=== PATIENT | male | born 1945 | race Caucasian/White ===

== ENCOUNTER 2017-02-17 12:30 | Emergency (ER) | payer MEDICARE, MEDICAID ==
[2017-02-17 14:50] LABS: Hematocrit 42 % (42-52); Mean Corpuscular HGB Conc 33 g/dl (31-36); Mean Corpuscular Hemoglobin 32 pg (27-31); Mean Corpuscular Volume 95 fL (80-94); Mean Platelet Volume 8 um3 (7.4-10.4); Red Blood Count 4.43 10^6/ul (4.0-5.4); Red Cell Distribution Width 14 % (10.5-15); White Blood Count 9.3 10^3/ul (3.5-10.8)
[2017-02-17 15:21] LABS: Albumin 3.5 g/dL (3.2-5.2); BUN/Creatinine Ratio 16.5 (8-20); C Reactive Protein 79.58 mg/L (< 5.00); EGFR African American 98.4 (>60); EGFR Non-African American 76.5 (>60); Globulin 2.8 g/dL (2-4); Total Bilirubin 0.4 mg/dL (0.2-1.0); Total Protein 6.3 g/dL (6.4-8.9)
[2017-02-17 15:42] LABS: Urine Bacteria Absent (Absent); Urine Bilirubin Negative (Negative); Urine Glucose Negative (Negative); Urine Nitrite Negative (Negative)
--- NOTE | 2017-02-17 15:52 | RAD ---
Indication: Left testicular pain. Real-time sonography of the scrotum was performed. The right testis measures 4.3 x 2.4 x 2.7 cm. No intratesticular masses are noted. Normal flow is noted in the right testis. The epididymis measures 11 x 14 mm. The left testis measures 3.6 x 2.2 x 2.9 cm. Normal flow is noted in the left testis. The left testis appears to BE hypervascular with calcifications. The epididymis appears to be enlarged measuring 12 x 18 mm. Epididymal head cyst measures 3 x 2 x 3 mm and 2 x 2 x 3 mm. Hypervascularity is noted. There is loculated left scrotal hydrocele. IMPRESSION: Findings consistent with left-sided epididymal orchitis. Loculated hydrocele is noted. Increased vascularity is noted in the left testis and left epididymis.
[2017-02-17] MEDS ORDERED: cefTRIAXone VIAL(*) 250 MG VIAL IM ONE (16:04)
[2017-02-17] MEDS ORDERED: DOXYcycline CAP(*) 100 MG PO ONE (16:04)
[2017-02-17] MEDS ORDERED: HYDROcodone/ACETAMIN 5-325 MG* 1 TAB PO ONE (16:13)
[2017-02-17 16:44] VITALS: BP 138/65
--- NOTE | 2017-02-17 18:45 | ED ---
Isma Serrano Angela, scribed for Rico Rangel MD on 02/17/17 at 1428 . GI/ HPI - HPI Summary HPI Summary: This pt is a 71 y/o male presenting to [facility] c/o swollen left testicle x6 days. Pt reports he also has pain. He states that he was first diagnosed with prostatitis by Dr. Hoffman's office and only had discomfort then. Pt notes worsening left testicle since then with pain now. He denies fever, chills, penile discharge. Pt is currently sexually active with different partners and states he does not use protection all the time. Pt was sent by his PCP for a sonogram of his testicle. PMHx includes hernia repair approximately 30 years ago. - History of Current Complaint Chief Complaint: EDGeneral Time Seen by Provider: 02/17/17 14:18 Stated Complaint: ENLARGED TESTICLE / SENT BY DR Somers Obtained From: Patient Onset/Duration: Started Days Ago, Still Present Timing: Lasting Days Pain Intensity: 8 Additional Locations for Males: Testicles - left Associated Signs and Symptoms: Negative: Fever, Chills Additional Signs & Symptoms: Negative: Penile Discharge - Allergy/Home Medications Allergies/Adverse Reactions: Allergies Allergy/AdvReac Type Severity Reaction Status Date / Time Abacavir [From Ziagen] Allergy Severe Fever Verified 02/17/17 13:48 PMH/Surg Hx/FS Hx/Imm Hx Endocrine/Hematology History: Denies: Hx Diabetes, Hx Thyroid Disease, Hx Anemia Cardiovascular History: Reports: Hx Angina, Hx Hypercholesterolemia, Hx Myocardial Infarction Denies: Hx Hypertension Respiratory History: Denies: Hx Asthma, Hx Chronic Obstructive Pulmonary Disease (COPD) GI History: Denies: Hx Jaundice, Hx Ulcer Musculoskeletal History: Denies: Hx Rheumatoid Arthritis, Hx Osteoporosis Sensory History: Reports: Hx Contacts or Glasses Opthamlomology History: Reports: Hx Contacts or Glasses - Surgical History Surgery Procedure, Year, and Place: cardiac stent placed 2000 Infectious Disease History: No Infectious Disease History: Reports: Hx Human Immunodeficiency Virus (HIV) Denies: Hx Hepatitis, Traveled Outside the [place] in Last 30 Days - Family History Known Family History: Positive: Diabetes - maternal grandmother, Other - Mother : hypothryroidism - Social History Alcohol Use: None Substance Use Type: Reports: Marijuana Substance Use Comment - Amount & Last Used: not recently, not in about a month Smoking Status (MU): Light Every Day Tobacco Smoker Type: Cigarettes Have You Smoked in the Last Year: Yes Review of Systems Negative: Fever, Chills Positive: pain, other - left testicle swelling. Negative: discharge All Other Systems Reviewed And Are Negative: Yes Physical Exam - Summary Physical Exam Summary: VITAL SIGNS: Reviewed. GENERAL: Patient is a well-developed and nourished male who is lying comfortable in the stretcher. Patient is not in any acute respiratory distress. HEAD AND FACE: No signs of trauma. No ecchymosis, hematomas or skull depressions. No sinus tenderness. EYES: PERRLA, EOMI x 2, No injected conjunctiva, no nystagmus. EARS: Hearing grossly intact. Ear canals and tympanic membranes are within normal limits. MOUTH: Oropharynx within normal limits. NECK: Supple, trachea is midline, no adenopathy, no JVD, no carotid bruit, no c- spine tenderness, neck with full ROM. CHEST: Symmetric, no tenderness at palpation LUNGS: Clear to auscultation bilaterally. No wheezing or crackles. CVS: Regular rate and rhythm, S1 and S2 present, no murmurs or gallops appreciated. ABDOMEN: Soft, non-tender. No signs of distention. No rebound no guarding, and no masses palpated. Bowel sounds are normal. : Uncircumcised penis without any discharged, both testicles are descended. Pt has a swollen left testicle. There is tenderness to palpation on right testicle. Good cremasteric reflex. EXTREMITIES: FROM in all major joints, no edema, no cyanosis or clubbing. NEURO: Alert and oriented x 3. No acute neurological deficits. Speech is normal and follows commands. SKIN: Dry and warm Triage Information Reviewed: Yes Vital Signs On Initial Exam: Initial Vitals Temp Pulse Resp BP Pulse Ox 97.6 F 74 20 140/92 95 02/17/17 12:32 02/17/17 12:32 02/17/17 12:32 02/17/17 12:32 02/17/17 12:32 Vital Signs Reviewed: Yes - [place] Coma Scale Coma Scale Total: 15 Diagnostics - Vital Signs Vital Signs Temp Pulse Resp BP Pulse Ox 02/17/17 13:51 74 96 02/17/17 13:50 129/92 02/17/17 12:32 97.6 F 74 20 140/92 95 - Laboratory Lab Results: Lab Results 02/17/17 02/17/17 02/17/17 Range/Units 14:36 14:36 14:36 WBC 9.3 (3.5-10.8) 10^3/ul RBC 4.43 (4.0-5.4) 10^6/ul Hgb 14.0 (14.0-18.0) g/dl Hct 42 (42-52) % MCV 95 H (80-94) fL MCH 32 H (27-31) pg MCHC 33 (31-36) g/dl RDW 14 (10.5-15) % Plt Count 204 (150-450) 10^3/ul MPV 8 (7.4-10.4) um3 Neut % (Auto) 63.2 (38-83) % Lymph % (Auto) 23.2 L (25-47) % [place] % (Auto) 11.2 H (1-9) % Eos % (Auto) 1.7 (0-6) % Baso % (Auto) 0.7 (0-2) % Absolute Neuts (auto) 5.9 (1.5-7.7) 10^3/ul Absolute Lymphs (auto) 2.2 (1.0-4.8) 10^3/ul Absolute Monos (auto) 1.0 H (0-0.8) 10^3/ul Absolute Eos (auto) 0.2 (0-0.6) 10^3/ul Absolute Basos (auto) 0.1 (0-0.2) 10^3/ul Absolute Nucleated RBC 0 10^3/ul Nucleated RBC % 0 Sodium 134 (133-145) mmol/L Potassium 4.0 (3.5-5.0) mmol/L Chloride 101 (101-111) mmol/L Carbon Dioxide 30 (22-32) mmol/L Anion Gap 3 (2-11) mmol/L BUN 16 (6-24) mg/dL Creatinine 0.97 (0.67-1.17) mg/dL Est GFR ( Amer) 98.4 (>60) Est GFR (Non-Af Amer) 76.5 (>60) BUN/Creatinine Ratio 16.5 (8-20) Glucose 84 (70-100) mg/dL Lactic Acid 0.9 (0.5-2.0) mmol/L Calcium 9.0 (8.6-10.3) mg/dL Total Bilirubin 0.40 (0.2-1.0) mg/dL AST 12 L (13-39) U/L ALT 5 L (7-52) U/L Alkaline Phosphatase 57 (34-104) U/L C-Reactive Protein 79.58 H (< 5.00) mg/L Total Protein 6.3 L (6.4-8.9) g/dL Albumin 3.5 (3.2-5.2) g/dL Globulin 2.8 (2-4) g/dL Albumin/Globulin Ratio 1.3 (1-3) Urine Color Urine Appearance Urine pH (5-9) Ur Specific [place] (1.010-1.030) Urine Protein (Negative) Urine Ketones (Negative) Urine Blood (Negative) Urine Nitrate (Negative) Urine Bilirubin (Negative) Urine Urobilinogen (Negative) Ur Leukocyte Esterase (Negative) Urine WBC (Auto) (Absent) Urine RBC (Auto) (Absent) Urine Bacteria (Absent) Urine Glucose (Negative) 02/17/17 Range/Units 15:24 WBC (3.5-10.8) 10^3/ul RBC (4.0-5.4) 10^6/ul Hgb (14.0-18.0) g/dl Hct (42-52) % MCV (80-94) fL MCH (27-31) pg MCHC (31-36) g/dl RDW (10.5-15) % Plt Count (150-450) 10^3/ul MPV (7.4-10.4) um3 Neut % (Auto) (38-83) % Lymph % (Auto) (25-47) % [place] % (Auto) (1-9) % Eos % (Auto) (0-6) % Baso % (Auto) (0-2) % Absolute Neuts (auto) (1.5-7.7) 10^3/ul Absolute Lymphs (auto) (1.0-4.8) 10^3/ul Absolute Monos (auto) (0-0.8) 10^3/ul Absolute Eos (auto) (0-0.6) 10^3/ul Absolute Basos (auto) (0-0.2) 10^3/ul Absolute Nucleated RBC 10^3/ul Nucleated RBC % Sodium (133-145) mmol/L Potassium (3.5-5.0) mmol/L Chloride (101-111) mmol/L Carbon Dioxide (22-32) mmol/L Anion Gap (2-11) mmol/L BUN (6-24) mg/dL Creatinine (0.67-1.17) mg/dL Est GFR ( Amer) (>60) Est GFR (Non-Af Amer) (>60) BUN/Creatinine Ratio (8-20) Glucose (70-100) mg/dL Lactic Acid (0.5-2.0) mmol/L Calcium (8.6-10.3) mg/dL Total Bilirubin (0.2-1.0) mg/dL AST (13-39) U/L ALT (7-52) U/L Alkaline Phosphatase (34-104) U/L C-Reactive Protein (< 5.00) mg/L Total Protein (6.4-8.9) g/dL Albumin (3.2-5.2) g/dL Globulin (2-4) g/dL Albumin/Globulin Ratio (1-3) Urine Color Yellow Urine Appearance Clear Urine pH 6.0 (5-9) Ur Specific [place] 1.013 (1.010-1.030) Urine Protein Negative (Negative) Urine Ketones Negative (Negative) Urine Blood 1+ H (Negative) Urine Nitrate Negative (Negative) Urine Bilirubin Negative (Negative) Urine Urobilinogen Negative (Negative) Ur Leukocyte Esterase Trace H (Negative) Urine WBC (Auto) Trace(0-5/hpf) (Absent) Urine RBC (Auto) 1+(3-5/hpf) H (Absent) Urine Bacteria Absent (Absent) Urine Glucose Negative (Negative) Result Diagrams: 02/17/17 14:36 02/17/17 14:36 Lab Statement: Any lab studies that have been ordered have been reviewed, and results considered in the medical decision making process. - Ultrasound No standard instances Ultrasound Interpretation: Positive (See Comments) - US Testicular IMPRESSION: Findings consistent with left-sided epididymal orchitis. Loculated hydrocele is noted. Increased vascularity is noted in the left testis and left epididymis. ED physician has reviewed this radiology report and agrees. Ultrasound Interpretation Completed By: Radiologist Re-Evaluation - Re-Evaluation First Eval Re-Evaluation Time: 16:29 Comment: I discussed the US results with the pt. GIGU Course/Dx - Course Assessment/Plan: This pt is a 71 y/o male presenting to [facility] c/o swollen left testicle x6 days. Pt reports he also has pain. He states that he was first diagnosed with prostatitis by Dr. Hoffman's office and only had discomfort then. Pt notes worsening left testicle since then with pain now. He denies fever, chills , penile discharge. Pt is currently sexually active with different partners and states he does not use protection all the time. Pt was sent by his PCP for a sonogram of his testicle. PMHx includes hernia repair approximately 30 years ago. Test results without any significant abnormality, CRP of 79.58. UA is negative for UTI. I did send a GC and chlamydia test. Testicular US shows findings consistent with left-sided epididymal orchitis. Loculated hydrocele is noted. Increased vascularity is noted in the left testis and left epididymis. Since the pt is sexually active with multiple partners without any protection and US shows epididymal orchitis, I will treat the pt for a possible STD. The pt will be given Rocephin and doxycycline. At this point I discussed my findings and results with the pt, and the need to follow up with urology. The pt understands and agrees. Pt is hemodynamically stable, alert and oriented x3. - Diagnoses Differential Diagnoses - Male: STD, Other - Testiclular torsion, testicular mass , epidydymitis Provider Diagnoses: Epididymo-orchitis Discharge - Discharge Plan Condition: Stable Disposition: HOME Prescriptions: DOXYcycline CAP(*) [DOXYcycline 100MG CAP(*)] 100 mg PO BID #20 cap Patient Education Materials: Epididymo-Orchitis (ED) Referrals: Adonis Hoffman MD [Primary Care Provider] - Additional Instructions: Please follow up with your primary care provider. RETURN TO THE ED FOR ANY WORSENING SYMPTOMS. The documentation as recorded by the Isma mirza Angela accurately reflects the service I personally performed and the decisions made by me, Rico Rangel MD.
== END 2017-02-17 16:46 | disposition home or self-care (01) ==
LOC: ED 12:30
DX: N50.89 Other specified disorders of the male genital organs (principal); F17.210 Nicotine dependence, cigarettes, uncomplicated
CPT/HCPCS: 36415; 76870; 80053; 81003; 81015; 83605; 85025; 86140; 87086; 87491; 87591; 96372; 99283; A9270-GY; J0696

== ENCOUNTER 2018-12-02 17:56 | Emergency (ER) | payer MEDICARE ==
[2018-12-02 18:49] LABS: ABS Eosinophils 0.1 10^3/ul (0-0.6); ABS Lymphocytes 1.8 10^3/ul (1.0-4.8); ABS Monocytes 0.6 10^3/ul (0-0.8); ABS Neutrophils 5.9 10^3/ul (1.5-7.7); Eosinophil % 0.8 %; Hematocrit 43 % (42-52); Hemoglobin 14.5 g/dL (14.0-18.0); Lymphocyte % 21.1 %; Mean Corpuscular HGB Conc 34 g/dL (31-36); Mean Corpuscular Hemoglobin 33 pg (27-31); Mean Corpuscular Volume 96 fL (80-94); Mean Platelet Volume 7.9 fL (7.4-10.4); Platelet Count 197 10^3/uL (150-450); Red Blood Count 4.43 10^6 /uL (4.18-5.48); Red Cell Distribution Width 14 % (10-15); White Blood Count 8.3 10^3/uL (3.5-10.8)
--- NOTE | 2018-12-02 18:54 | ED ---
Dizziness - HPI Summary HPI Summary: Patient presents with episode of lightheadedness and subsequent fall onto tailbone with episodes of vomiting and repeat bowel movements and dizziness after fall. Denies prior history of same. Patient states he returned to baseline, has some soreness to right gluteus. Symptoms lasted for approximately one hour. Patient is ambulatory. Patient denies prior history of similar symptoms. Denies fever, cough, sore throat, CP, SOB, N/V/D, abdominal pain, change in urine, LOC, CASTILLO, vision change, unilateral weakness or focal deficits. Medical history is [place] in 2000 with stents, HIV positive, HTN. No anti-coag. States recent stress test and echocardiogram last December 2017. [facility] Dr. Cannon. - History Of Current Complaint Chief Complaint: EDSyncope Stated Complaint: N/V, DIZZINESS PER EMS Hx Obtained From: Patient Onset/Duration: Resolved Timing: Minutes Severity Initially: Moderate Severity Currently: None Character: Room Spinning, Lightheaded, Dizzy Aggravating Factor(s): Nothing Alleviating Factor(s): Nothing Associated Signs And Symptoms: Positive: Nausea, Vomiting - Allergies/Home Medications Allergies/Adverse Reactions: Allergies Allergy/AdvReac Type Severity Reaction Status Date / Time MS Abacavir [From Ziagen] Allergy Severe Fever Verified 12/02/18 07:53 Home Medications: Home Medications Atorvastatin* [Lipitor*] 20 mg PO DAILY 12/02/18 [History Confirmed 12/02/18] Darunavir/Cobicistat [Prezcobix 800-150 mg] 1 tab PO DAILY 12/02/18 [History Confirmed 12/02/18] Dolutegravir (NF) [Tivicay (NF)] 50 mg PO DAILY 12/02/18 [History Confirmed ] FLUoxetine CAP* [PROzac CAP*] 40 mg PO DAILY 12/02/18 [History Confirmed ] Metoprolol Succinate XL TAB* [Toprol XL TAB*] 100 mg PO DAILY 12/02/18 [History Confirmed 12/02/18] PMH/Surg Hx/FS Hx/Imm Hx Endocrine/Hematology History: Denies: Hx Diabetes, Hx Thyroid Disease, Hx Anemia Cardiovascular History: Reports: Hx Angina, Hx Hypercholesterolemia, Hx Myocardial Infarction Denies: Hx Hypertension Respiratory History: Denies: Hx Asthma, Hx Chronic Obstructive Pulmonary Disease (COPD) GI History: Denies: Hx Jaundice, Hx Ulcer History: Denies: Hx Dialysis Musculoskeletal History: Denies: Hx Rheumatoid Arthritis, Hx Osteoporosis Sensory History: Reports: Hx Contacts or Glasses Opthamlomology History: Reports: Hx Contacts or Glasses EENT History: Denies: Hx Deafness Neurological History: Denies: Hx Developmental Delay - Surgical History Surgery Procedure, Year, and Place: cardiac stent placed 2000 Infectious Disease History: Yes Infectious Disease History: Reports: Hx Human Immunodeficiency Virus (HIV) Denies: Hx Hepatitis, Traveled Outside the [place] in Last 30 Days - Family History Known Family History: Positive: Diabetes - maternal grandmother, Other - Mother : hypothryroidism - Social History Alcohol Use: Weekly Substance Use Type: Reports: Marijuana Substance Use Comment - Amount & Last Used: not recently, not in about a month Smoking Status (MU): Light Every Day Tobacco Smoker Type: Cigarettes Have You Smoked in the Last Year: Yes Review of Systems Constitutional: Negative Eyes: Negative ENT: Negative Cardiovascular: Negative Respiratory: Negative Positive: Vomiting, Nausea Genitourinary: Negative Musculoskeletal: Negative Skin: Negative Neurological: Negative Psychological: Normal All Other Systems Reviewed And Are Negative: Yes Physical Exam - Summary Physical Exam Summary: Neuro exam normal. No evidence of trauma noted during physical exam. Patient alert and oriented. Triage Information Reviewed: Yes Vital Signs On Initial Exam: Initial Vitals Temp Pulse Resp BP Pulse Ox 98.8 F 60 16 125/75 97 12/02/18 18:06 12/02/18 18:06 12/02/18 18:06 12/02/18 18:06 12/02/18 18:06 Vital Signs Reviewed: Yes Appearance: Positive: Well-Appearing Skin: Positive: Warm Head/Face: Positive: Normal Head/Face Inspection Eyes: Positive: Normal ENT: Positive: Normal ENT inspection Dental: Negative: Dental Fracture @, Bleeding Neck: Positive: Supple Respiratory/Lung Sounds: Positive: Clear to Auscultation Cardiovascular: Positive: Normal, Murmur Abdomen Description: Positive: Nontender Musculoskeletal: Positive: Normal Neurological: Positive: Normal Psychiatric: Positive: Normal AVPU Assessment: Alert - Dat Coma Scale Best Eye Response: 4 - Spontaneous Best Motor Response: 6 - Obeys Commands Best Verbal Response: 5 - Oriented Coma Scale Total: 15 Diagnostics - Vital Signs Vital Signs Temp Pulse Resp BP Pulse Ox 12/02/18 18:38 61 15 133/86 95 12/02/18 18:36 60 19 136/86 96 12/02/18 18:23 60 18 96 12/02/18 18:07 58 19 125/75 97 12/02/18 18:06 98.8 F 60 16 125/75 97 - Laboratory Lab Results: Lab Results 12/02/18 Range/Units 18:39 WBC 8.3 (3.5-10.8) 10^3/uL RBC 4.43 (4.18-5.48) 10^6 /uL Hgb 14.5 (14.0-18.0) g/dL Hct 43 (42-52) % MCV 96 H (80-94) fL MCH 33 H (27-31) pg MCHC 34 (31-36) g/dL RDW 14 (10-15) % Plt Count 197 (150-450) 10^3/uL MPV 7.9 (7.4-10.4) fL Neut % (Auto) 70.9 % Lymph % (Auto) 21.1 % [place] % (Auto) 6.8 % Eos % (Auto) 0.8 % Baso % (Auto) 0.4 % Absolute Neuts (auto) 5.9 (1.5-7.7) 10^3/ul Absolute Lymphs (auto) 1.8 (1.0-4.8) 10^3/ul Absolute Monos (auto) 0.6 (0-0.8) 10^3/ul Absolute Eos (auto) 0.1 (0-0.6) 10^3/ul Absolute Basos (auto) 0.0 (0-0.2) 10^3/ul Absolute Nucleated RBC 0.0 10^3/ul Nucleated RBC % 0.0 Result Diagrams: 12/02/18 18:39 12/02/18 18:39 Lab Statement: Any lab studies that have been ordered have been reviewed, and results considered in the medical decision making process. Dizzy Course/Dx - Course Course Of Treatment: Patient presents with episode of lightheadedness and subsequent fall onto tailbone with episodes of vomiting and repeat bowel movements and dizziness after fall. Denies prior history of same. Patient states he returned to baseline, has some soreness to right gluteus. Symptoms lasted for approximately one hour. Patient is ambulatory. Patient denies prior history of similar symptoms. Denies fever, cough, sore throat, CP, SOB, N /V/D, abdominal pain, change in urine, LOC, [place], vision change, unilateral weakness or focal deficits. Medical history is [place] in 2000 with stents, HIV positive, HTN. No anti-coag. States recent stress test and echocardiogram last December 2017. [facility] Dr. Cannon. Vital signs within normal limits. Creatinine 1.5. Patient given 2 L normal saline. Labs otherwise unremarkable. Serial troponins negative. EKG sinus rhythm, consistent with prior. Patient ambulated in the ED with no symptoms. States he is at baseline. Advised to follow-up with his credit advisor. - Diagnoses Provider Diagnoses: Dizziness, Nausea vomiting and diarrhea, Fall Discharge - Sign-Out/Discharge Documenting (check all that apply): Patient Departure Patient Received Moderate/Deep Sedation with Procedure: No - Discharge Plan Condition: Stable Disposition: HOME Patient Education Materials: Fall Prevention for Older Adults (ED), Acute Nausea and Vomiting (ED), Acute Diarrhea (ED), Dizziness (ED) Referrals: Adonis Hoffman MD [Primary Care Provider] - Additional Instructions: Drink fluids to maintain hydration. Follow up with your credit advisor for further evaluation. Return to the ED for any new or worsening symptoms. - Billing Disposition and Condition Condition: STABLE Disposition: Home
[2018-12-02 19:03] LABS: Troponin I 0.01 ng/mL (<0.04)
[2018-12-02 19:10] LABS: ALT 12 U/L (7-52); AST 26 U/L (13-39); Albumin 4.2 g/dL (3.2-5.2); Albumin/Globulin Ratio 1.8 (1-3); Alkaline Phosphatase 56 U/L (34-104); Anion Gap 6 mmol/L (2-11); Blood Urea Nitrogen 20 mg/dL (6-24); CO2 Carbon Dioxide 25 mmol/L (22-32); Calcium 9.1 mg/dL (8.6-10.3); Chloride 106 mmol/L (101-111); EGFR Non-African American 44.6 (>60); Globulin 2.3 g/dL (2-4); Glucose 115 mg/dL (70-100); Magnesium 2.2 mg/dL (1.9-2.7); Sodium 137 mmol/L (135-145); Total Protein 6.5 g/dL (6.4-8.9)
[2018-12-02 19:13] LABS: Alcohol < 10 mg/dL (<10)
[2018-12-02 19:53] LABS: INR 1.03 (0.82-1.09)
[2018-12-02] MEDS ORDERED: NS 0.9% 1000 ML** 1,000 ML IV ONE (20:07)
[2018-12-02 20:11] LABS: Urine Appearance Clear; Urine Bilirubin Negative (Negative); Urine Blood Negative (Negative); Urine Color Yellow; Urine Glucose Negative (Negative); Urine Ketones Negative (Negative); Urine Nitrite Negative (Negative); Urine Protein Negative (Negative); Urine Specific Gravity 1.011 (1.010-1.030); Urine Urobilinogen Negative (Negative)
[2018-12-02 23:18] VITALS: BP 119/76
== END 2018-12-02 23:17 | disposition home or self-care (01) ==
LOC: ED 17:56
DX: R42 Dizziness and giddiness (principal); R11.2 Nausea with vomiting, unspecified; R19.7 Diarrhea, unspecified; W19.XXXA Unspecified fall, initial encounter; Y92.9 Unspecified place or not applicable; Z21 Asymptomatic human immunodeficiency virus [HIV] infection status; I10 Essential (primary) hypertension; I25.2 Old myocardial infarction; E78.00 Pure hypercholesterolemia, unspecified; F17.210 Nicotine dependence, cigarettes, uncomplicated; Z88.8 Allergy status to other drugs, medicaments and biological substances; Z79.899 Other long term (current) drug therapy
CPT/HCPCS: 36415; 70450; 80053; 80320; 81003; 83605; 83735; 84443; 84484; 85025; 85610; 85730; 93005; 96360; 96361; 99284; G0480